=== PATIENT | male | born 1985 | race American Indian/Alaskan Native ===

== ENCOUNTER 2018-06-04 21:00 | Emergency (ER) | payer BC, OTHER ==
[2018-06-04] MEDS ORDERED: Sodium Chloride 0.9% 1,000 ML IV SCH ×2 (21:30→22:15)
[2018-06-04 21:53] LABS: ANION GAP 16.6; CHLORIDE,CL 97 mmol/L (101-111); SODIUM,NA 132 mmol/L (135-145)
[2018-06-04] MEDS ORDERED: cefTRIAXone 1 GM in Sodium Chloride 0.9% 50 ML IV ONE (22:05)
--- NOTE | 2018-06-04 22:10 | EDM.PDOC ---
ED HPI GENERAL MEDICAL PROBLEM - General Chief Complaint: ENT Problem Stated Complaint: FLU, NECK SWALLON HARD TO SWALLOW [id number] Time Seen by Provider: 06/04/18 22:07 Source of Information: Reports: Patient History Limitations: Reports: No Limitations - History of Present Illness INITIAL COMMENTS - FREE TEXT/NARRATIVE: 3 days h/o F/C feeling like flu, yesterday sore throat began, worse tonight Throat Pain Score (Numeric/FACES): 8 Headache Pain Score (Numeric/FACES): 6 - Related Data Allergies Allergy/AdvReac Type Severity Reaction Status Date / Time No Known Allergies Allergy Verified 06/04/18 21:12 Home Meds: Home Meds . [No Known Home Meds] 06/04/18 [History] Past Medical History - Past Surgical History GI Surgical History: Reports: Cholecystectomy Social & Family History - Tobacco Use Smoking Status *Q: Former Smoker Used Tobacco, but Quit: Yes Month/Year Tobacco Last Used: 10 - Caffeine Use Caffeine Use: Reports: Energy Drinks - Recreational Drug Use Recreational Drug Use: No ED ROS ENT - Review of Systems Review Of Systems: ROS reveals no pertinent complaints other than HPI. ED EXAM, ENT - Physical Exam Exam: See Below Exam Limited By: No Limitations General Appearance: Alert, WD/WN, Mild Distress, Other (discomfort) Ears: Hearing Grossly Normal Mouth/Throat: Pharyngeal Erythema, Tonsillar Erythema, Tonsillar Exudates, Tonsillar Swelling Head: Atraumatic Neck: Non-Tender, Full Range of Motion Respiratory/Chest: No Respiratory Distress Cardiovascular: Regular Rate, Rhythm GI/Abdominal: Soft, Non-Tender Neurological: Alert, Oriented, Normal Cognition, Normal Gait, No Motor/Sensory Deficits Psychiatric: Flat Affect Skin: Warm, Dry, Normal Color Lymphatic: No Adenopathy Course - Vital Signs Last Recorded V/S: Last Vital Signs Temp 38.9 C H 06/04/18 23:24 Pulse 105 H 06/04/18 23:24 Resp 16 06/04/18 23:24 BP 116/75 06/04/18 23:24 Pulse Ox 96 06/04/18 23:24 - Orders/Labs/Meds Orders: Active Orders 24 hr Category Date Time Status CULTURE BLOOD [BC] Stat Lab 06/04/18 21:25 Received Labs: Laboratory Tests 04/12/19 04/12/19 04/12/19 Range/Units 21:25 21:25 21:25 WBC 20.5 H (5.0-10.0) 10^3/uL RBC 5.27 (4.6-6.2) 10^6/uL Hgb 15.3 (14.0-18.0) g/dL Hct 44.4 (40.0-54.0) % MCV 84.3 (80-100) fL MCH 29.0 (27.0-34.0) pg MCHC 34.5 (33.0-35.0) g/dL Plt Count 237 (150-450) 10^3/uL Neut % (Auto) 89.0 H (42.2-75.2) % Lymph % (Auto) 4.4 L (20.5-50.1) % [place] % (Auto) 6.4 (2-8) % Eos % (Auto) 0.1 L (1.0-3.0) % Baso % (Auto) 0.1 (0.0-1.0) % Sodium 132 L (135-145) mmol/L Potassium 3.6 (3.6-5.0) mmol/L Chloride 97 L (101-111) mmol/L Carbon Dioxide 22.0 (21.0-31.0) mmol/L Anion Gap 16.6 BUN 11 (7-18) mg/dL Creatinine 0.9 (0.6-1.3) mg/dL Est Cr Clr Drug Dosing 152.33 mL/min Estimated GFR (MDRD) > 60 BUN/Creatinine Ratio 12.22 Glucose 249 H (74-105) mg/dL Lactic Acid 1.8 (0.5-2.2) mmol/L Calcium 8.3 L (8.4-10.2) mg/dl Total Bilirubin 1.0 (0.2-1.0) mg/dL AST 22 (10-42) IU/L ALT 28 (10-60) IU/L Alkaline Phosphatase 83 (42-121) IU/L Total Protein 7.9 (6.7-8.2) g/dl Albumin 3.8 (3.2-5.5) g/dl Globulin 4.1 Albumin/Globulin Ratio 0.93 Meds: Medications Discontinued Medications Generic Name Dose Route Start Last Admin Trade Name Freq PRN Reason Stop Dose Admin Sodium Chloride 1,000 mls @ 999 mls/hr 06/04/18 21:30 06/04/18 21:26 Normal Saline IV 999 mls/hr ASDIRECTED WOLF Administration Ceftriaxone Sodium 1 gm/ 50 mls @ 50 mls/hr 06/04/18 22:05 06/04/18 22:16 Sodium Chloride IV 06/04/18 23:04 50 mls/hr ONETIME ONE Administration Sodium Chloride 1,000 mls @ 999 mls/hr 06/04/18 22:15 06/04/18 22:14 Normal Saline IV 999 mls/hr ASDIRECTED WOLF Administration Ketorolac Tromethamine 30 mg 06/04/18 23:10 06/04/18 23:18 Toradol IVPUSH 06/04/18 23:11 30 mg ONETIME ONE Administration - Re-Assessments/Exams Free Text/Narrative Re-Assessment/Exam: 06/04/18 22:08 results discussed with pt. Departure - Departure Time of Disposition: 23:45 Disposition: Home, Self-Care 01 Condition: Good Clinical Impression: Streptococcal tonsillopharyngitis - Discharge Information Instructions: Strep Throat, [id number] Referrals: PCP,None [Primary Care Provider] - Forms: ED Department Discharge Additional Instructions: 1) avoid solid foods next 48 hours 2) have popsicle, jello, juice 3) take tylenol or motrin for fever and body aches 4) follow up at clinic rx given; heath - My Orders Last 24 Hours: My Active Orders 06/04/18 21:25 CULTURE BLOOD [BC] Stat - Assessment/Plan Last 24 Hours: My Active Orders 06/04/18 21:25 CULTURE BLOOD [BC] Stat
[2018-06-04] MEDS ORDERED: Ketorolac 30 MG/ML SDV IVPUSH ONE (23:10)
== END 2018-06-04 23:44 | disposition home or self-care (01) ==
LOC: DL.ED 21:00
DX: J03.00 Acute streptococcal tonsillitis, unspecified (principal); Z87.891 Personal history of nicotine dependence
CPT/HCPCS: 36415; 80053; 83605; 85025; 87040; 87430; 87804; 96365; 96366; 96368; 96375; 99283; J0696; J1885; J7030; J7050